=== PATIENT | female | born 1975 | race Caucasian/White ===

== ENCOUNTER 2022-07-21 11:59 | Inpatient (IN) | payer SELFPAY ==
[2022-07-21] VITALS (8 sets, daily range): BP systolic 119–154; BP diastolic 68–95; PULSE 81–99; RESP 20–27; TEMP 34.9–36.1; O2SAT 94–100; BMI 40.8
--- NOTE | ~2022-07-21 | CT_ITS ---
EXAMINATION: CTA chest PE protocol DATE: 07/21/2022 14:19 INDICATION: Chest pain. TECHNIQUE: Computed tomography angiography (CTA) of the chest was performed with 100 mL Omnipaque-350 intravenous contrast timed to evaluate the pulmonary arteries. Coronal maximum intensity projection 3D-reconstructions were created by the technologist. Automated exposure control and iterative reconst ruction technique were employed. The dose-length product was 427.69 mGy-cm. COMPARISON: Chest single view 07/21/2022 FINDINGS: There is a 10 mm nodule in right lung lower lobe near the hilum. There is a 3 mm nodule in left upper lobe. There is smooth septal thickening in the lungs, consistent with mild pulmonary edema . There is mild atelectasis bilaterally. No pleural effusion. The heart size is normal. No pericardia l effusion. There is no pulmonary embolus. A right hilar node measures 2.8 x 2.2 cm. There is a mildl y enlarged right paratracheal node. There is subcarinal lymphadenopathy with central calcifications. There is mild thoracic spondylosis. IMPRESSION: 1. No pulmonary embolus. 2. 10 mm pulmonary nodule, which may be infection or malignancy. Noncontrast chest CT is recommended in 3 months. 3. Right hilar and mediastinal lymphadenopathy. 4. Mild pulmonary edema. Reviewed, dictated and finalized at location A. IMPRESSION: 1. No pulmonary embolus. 2. 10 mm pulmonary nodule, which may be infection or malignancy. Noncontrast ch est CT is recommended in 3 months. 3. Right hilar and mediastinal lymphadenopathy. 4. Mild pulmonary edema.
--- NOTE | ~2022-07-21 | XR_ITS ---
EXAMINATION: XR chest 1V portable INDICATION: Chest pain and shortness of breath TECHNIQUE: Portable AP chest at 1311 hours COMPARISON: None available FINDINGS: There are patchy interstitial and airspace opacities throughout the lungs. No pleural effus ion or pneumothorax. The cardiomediastinal silhouette is normal. IMPRESSION: 1. Diffuse lung disease, consistent with pneumonia versus pulmonary edema. Reviewed, dictated and finalized at location B.
--- NOTE | 2022-07-21 12:04 | ECG_ITS ---
Measurements Intervals [place] Rate: 88 P: 22 AL: 127 QRS: 38 QRSD: 90 T: 13 QT: 374 QTc: 454 Interpretive Statements SINUS RHYTHM ST-T WAVE ABNORMALITY IN ANTERIOR LEADS- CONSIDER ISCHEMIA BASELINE ARTIFACT- I, III, AVL ABNORMAL ECG NO PREVIOUS ECG AVAILABLE FOR COMPARISON Electronically Signed On 07-21-2022 21:21:10 CDT by Alan Prater D.O.
--- NOTE | 2022-07-21 12:20 | PC.NURSE ---
Patient placed in in waiting room to await available bed. This RN at intake desk when another patient came to the desk and said I think she needs some help . When this RN entered the waiting room the patient was found lying in the prone position on the floor with legs underneath WC. The patient was awake and oriented. The patient was questioned as to how she ended up on the floor. She was asked if she fell or if she passed out. She stated I laid down here . The patient was questioned again if she fell or if she laid down on the floor. At this time KRIS Rowe also present and again the patient communicated to both this RN and KRIS Rowe that she laid down on the floor intentionally. spd manager made aware.
--- NOTE | 2022-07-21 12:32 | PC.NURSE ---
Patient's , Pancho, requests update when available. Pancho [phone]
[2022-07-21 12:37] LABS: Basophils Percent Auto 0.4 % (0.2-1.2); Eosinophils Absolute Auto 0.1 K/mm3 (0-0.3); Eosinophils Percent Auto 0.7 % (0-4.4); Hematocrit 45.4 % (37.0-47.0); Hemoglobin 14.8 g/dL (12.0-15.0); Immature Granulocyte Absolute 0.03 K/mm3 (0.00-0.031); Immature Granulocyte Percent A 0.4 % (0-0.5); Lymphocytes Absolute Auto 0.14 K/mm3 (0.9-3.2); Lymphocytes Percent Auto 1.8 % (18.3-44.2); Mean Corpuscular HGB Conc 32.6 g/dl (32-36); Mean Corpuscular Hemoglobin 29.1 pg (26-34); Mean Corpuscular Volume 89.2 fl (80-100); Monocytes Absolute Auto 0.5 K/mm3 (0.1-0.6); Monocytes Percent Auto 6.9 % (2.6-8.5); Neutrophils Absolute Auto 6.8 K/mm3 (1.3-6.7); Neutrophils Percent Auto 89.8 % (45.5-73.1); Platelet Count Result 179 k/mm3 (150-375); Red Blood Count 5.09 M/mm3 (4.2-5.4); Red Cell Distribution Width 13.7 % (11.5-14.5); White Blood Count 7.6 K/mm3 (4.5-10.0)
[2022-07-21 12:42] LABS: INR 1.1; Prothrombin Time 13.8 Seconds (11.1-14.7)
[2022-07-21 12:43] LABS: Partial Thromboplastin Time 28.4 SECONDS (22.3-36.8)
[2022-07-21 12:46] LABS: Alanine Aminotransferase 35 U/L (6-35); Albumin Level 4.2 g/dL (3.5-5.1); Alkaline Phosphatase 106 U/L (38-126); Anion Gap 10 mmol/L (8-16); Aspartate Amino Transferase 40 U/L (14-36); Bilirubin,Total 0.4 mg/dL (0.2-1.3); Blood Urea Nitrogen 14 mg/dL (7-17); Calcium 9.1 mg/dL (8.4-10.2); Carbon Dioxide 22 mmol/L (22-30); Chloride 99 mmol/L (98-107); Estimated CRCL calculation 75 ml/min; Estimated Glomerular Filt Rate 60; Glucose 106 mg/dL (65-110); Lipase 42 U/L (23-300); Potassium 4.1 mmol/L (3.4-5.0); Sodium 131 mmol/L (137-145)
[2022-07-21] MEDS: SODIUM CHLORIDE 0.9% IV 1,000 ML 999 ML IV CONT (12:55)
[2022-07-21] MEDS: ONDANSETRON INJ 4 MG/2 ML VIAL IV PUSH (12:56)
[2022-07-21 12:58] LABS: Troponin I < 0.012 ng/mL (0.000-0.034)
[2022-07-21 13:21] LABS: NT Pro B Type Natriuretic Pept 3220 pg/mL (5-100)
--- NOTE | 2022-07-21 13:21 | ED.GENADULT ---
HPI - General Adult General Chief complaint: Shortness of Breath/Dyspnea Stated complaint: shortness of breath - exposure to covid Time Seen by Provider: 07/21/22 12:27 Source: patient and RN notes reviewed Mode of arrival: wheelchair History of Present Illness HPI narrative: This is a 46 year old female smoker who presents for evaluation of difficulty breathing. Patient states her tested positive for COVID on Sunday, and she developed symptoms yesterday. She reports headache, nausea, chest pain, body aches, back pain and shortness of breath. She reports weakness as well. She denies vaccination of covid. She reports her chest feels tight Related Data Allergies Allergy/AdvReac Type Severity Reaction Status Date / Time No Known Allergies Allergy Verified 07/21/22 12:42 Review of Systems Review of Systems: All systems reviewed & are unremarkable except as noted in HPI and below Constitutional: Constitutional: Denies chills, Reports fatigue and Denies fever(s) ENT: Reports nasal congestion Cardiovascular: Cardiovascular: Reports chest pain Respiratory: Respiratory: Reports chest congestion, Reports cough and Reports dyspnea Gastrointestinal: Gastrointestinal: Denies abdominal pain, Reports nausea and Denies vomiting Musculoskeletal: Musculoskeletal: Reports myalgias Neurologic: Denies syncope and Reports headache(s) [facility] Past Medical History Medical History (Updated 07/21/22 @ 16:10 by Jacqueline Dyer MD) Patient denies medical problems Surgical History Surgical History (Updated 07/21/22 @ 16:40 by Natalie Morales NP) H/O tubal ligation History of appendectomy Family History Family History (Updated 07/21/22 @ 16:42 by Natalie Morales NP) Unknown Adopted Social History Social History (Updated 07/21/22 @ 16:41 by Natalie Morales NP) Social History: 2 children unemplyed Smoking packs per day: 0.5 Smoking cigarettes per day: 10.0 Smoking status: Current every day smoker Exam Const: General: ill appearing; No diaphoretic Orientation/consciousness: patient oriented x3 HENMT: Head: normal to inspection Ears: external ears normal and TM's normal bilaterally Face and sinus: normal facial exam Mouth: Yes Normal oral and palatal mucosa present Throat: posterior oropharynx normal Eyes: Conjunctivae: conjunctivae normal Pupils: Equal, round and reactive pupils present EOM: EOMs intact bilaterally Neck: Neck: normal visual inspection Resp: Effort & Inspection: normal respiratory effort Auscultation: clear to auscultation bilaterally Cardio: Rate: regular rate Rhythm: regular rhythm Heart sounds: no murmurs GI: GI Palp: Yes Soft to palpation, No Tenderness to palpation present (GI) and No Guarding due to palpation present (GI) Auscultation: normal bowel sounds Skin: General skin exam: normal color Rashes: no rashes Wounds: no wounds Neuro: General: patient oriented x3, moves all extremities and CN's II-XI intact bilaterally Extrem: General: normal to inspection Psych: Mental Status: mental status grossly normal Course Reevaluation(s) Reevaluation #1: Patient presented with sob appears to be due to covid. pneumonia vs pulmonary edema . I went in room to tell her she was being admitted and oxygen saturation 87% on room air. PAtient placed on 2 L NC. Will started remdesivir and dexamethasone. Natalie accepts patient to hospitalist service. Date: 07/21/22 Time: 16:06 Vital Signs Vital signs: Vital Signs Temperature 96.9 F L 07/21/22 12:00 Pulse Rate 95 07/21/22 12:00 Respiratory Rate 20 07/21/22 12:00 Blood Pressure 154/95 H 07/21/22 12:00 Pulse Oximetry 100 07/21/22 12:00 Temperature 96.9 F L 07/21/22 12:00 Pulse Rate 81 07/21/22 17:18 Respiratory Rate 27 H 07/21/22 17:18 Blood Pressure 125/78 07/21/22 17:18 Pulse Oximetry 99 07/21/22 17:18 Oxygen Delivery Nasal Cannula 07/21/22 17:18 Oxygen
[2022-07-21] MEDS: ALBUTEROL SULFATE (*SP) AEROSOL 1 PUFF 4 PUFF INHALATION (13:22)
[2022-07-21 13:28] LABS: Base Excess ABG -4.5 mEq/l (+/-2.0); Carboxyhemoglobin 0.7 % THb (0-2.0); Fractional Inspired Oxygen 21 %; Methemoglobin ABG 0.3 %THb (0-1.5); Oxygen Saturation ABG 91.5 % (95.0-100.0); Oxyhemoglobin 89.2 % THb (90.0-100.0); PCO2 ABG 30.8 mmHg (35.0-45.0); PO2 ABG 59.8 mmHg (80.0-100.0); PO2 FiO2 Ratio Arterial Blood 2.85 %; Reduced Hemoglobin 9.8 %THb (0-5.0); Total Hemoglobin 14.4 g/dL (12.0-18.0); pH ABG 7.407 (7.350-7.450)
[2022-07-21 13:29] LABS: Device ROOM AIR; Site Drawn RIGHT BRACHIAL
[2022-07-21 13:39] LABS: SARS-CoV-2 RNA PCR Positive
[2022-07-21 15:41] LABS: Troponin I 0.012 ng/mL (0.000-0.034)
--- NOTE | 2022-07-21 16:40 | PM.IMHP ---
H&P: HPI History of Present Illness Date/Time: 07/21/22 16:40 Chief Complaint: Shortness of breath/dyspnea Narrative: This is a 46-year-old female patient who has a history of tobacco abuse. The patient has not been vaccinated for COVID. She came in today to be evaluated for difficulty breathing. Her tested positive for COVID on Sunday and she developed symptoms yesterday. The patient has a severe headache, nausea, vomiting, chest tightness, body aches, and generalized weakness. She is also short of breath with exertion. Her D-dimer was noted to be 1.4. Sodium 131. BNP 3220 and she is positive for COVID. Chest x-ray was read as diffuse lung disease, consistent with pneumonia versus pulmonary edema. Chest CTA was read as the following. No pulmonary embolus. 2. 10 mm pulmonary nodule, which may be infection or malignancy. Noncontrast chest CT is recommended in 3 months. 3. Right hilar and mediastinal lymphadenopathy. 4. Mild pulmonary edema. I explained to the patient that she would need to follow-up with the primary care doctor to have a CT repeated in 3 months for her 10 mm pulmonary nodule. The patient tells me that she does not have a primary care doctor because she is not on any chronic medicine. I explained that she will need to get a list of primary care doctors that her taking new patients prior to being discharged. The patient's O2 level dropped down to 94% she was placed on oxygen at 2 L per nasal cannula. Patient stated she is too weak to walk. She also stated that she feels too dizzy to walk. Patient was given Zofran IV fluids, albuterol, Tylenol, Decadron, and remdesivir. The patient is being admitted to observation status on the date of service of 07/21/2022. Review of Systems Review of Systems: See HPI All systems reviewed & are unremarkable except as noted in HPI and below Constitutional: Constitutional: Reports as per HPI and Reports no additional constitutional complaints Eyes: Eyes: Reports as per HPI and Reports no additional eye complaints ENT: Reports system reviewed and no additional complaints, except as documented and Reports Normal hearing present Cardiovascular: Cardiovascular: Reports no additional cardiovascular complaints Respiratory: Respiratory: Reports no additional respiratory complaints and Reports no additional respiratory complaints Gastrointestinal: Gastrointestinal: Reports as per HPI and Reports no additional gastrointestinal complaints Musculoskeletal: Musculoskeletal: Reports no additional musculoskeletal complaints Integumentary/Breasts: Skin/Breast: Reports system reviewed and no additional complaints, except as docu and Reports as per HPI Neurologic: Reports system reviewed and no additional complaints, except as documented, Reports as per HPI and Reports Normal hearing present Psychiatric: Psychiatric: Reports no additional psychiatric complaints and Reports as per HPI Endocrine: Endocrine: Reports no additional endocrine complaints Hematologic/Lymphatic: Hematologic/Lymphatic: Reports no additional hematologic/lymphatic complaints Allergic/Immunologic: Allergic/Immunologic: Reports no additional allergic/immunologic complaints PMF Past Medical History Medical History (Updated 07/21/22 @ 18:49 by Natalie Morales NP) Patient denies medical problems Tobacco abuse Surgical History Surgical History H/O tubal ligation History of appendectomy Family History Family History Unknown Adopted Social History Social History (Updated 07/21/22 @ 18:44 by Natalie Morales NP) Social History: The patient is and has 2 children. She is currently Unemplyed. The patient continues to smoke daily at least a half pack a cigarettes a day. She denies any alcohol marijuana or illicit drugs. Her is a durable power claims attorney for healthcare. Saad
[2022-07-21] MEDS: REMDESIVIR 200 MG/NS 250 ML 200 MG/250 ML BAG 250 MG IVPB (17:15)
--- NOTE | 2022-07-21 17:59 | ADMGEN ---
This patient, Selin Denny, was admitted to 3 [facility] Room 320-01 at 1735. Patient/family oriented to hospital policies and general routines including ID bracelet, bed and alarms, visiting hours, pain management, procedures, bathroom and other care routines, personal items, smoking policy, room service/diet, and visiting hours. Information on how to activate the Rapid Response Team has been discussed. Patient/Family are encouraged to report perceived risks to care and to ask questions if they do not understand what they are told or what they should do.
[2022-07-21 19:20] LABS: Alanine Aminotransferase 30 U/L (6-35); Estimated CRCL calculation 83 ml/min; Estimated Glomerular Filt Rate > 60
[2022-07-21 19:26] LABS: INR 1.2; Prothrombin Time 14.5 Seconds (11.1-14.7)
[2022-07-22] VITALS (7 sets, daily range): BP systolic 123–153; BP diastolic 77–94; PULSE 72–92; RESP 12–20; TEMP 36.4–36.6; O2SAT 94–96
--- NOTE | 2022-07-22 | ECHO_ITS ---
Patient Info Name: Selin Denny Age: 46 years : 1975 Gender: Female Ht: 64 in Wt: 238 lbs BSA: 2.26 m2 HR: 83 bpm BP: 119 / 89 mmHg Technical Quality: Fair Exam Date: 07/22/2022 11:42 AM Exam Location: [facility] Patient Status: Inpatient Admit Date: 07/21/2022 Staff Ordering Physician: Natalie Morales NP Green Marketer: Indu Rivero RDCS Attending Provider: Compa Sahu MD Referring Physician: Andrew ORELLANA; Exam Type: CA echo doppler color flow Study Info Indications J90 - Pleural effusion, not elsewhere classified Complete two-dimensional, color flow and Doppler transthoracic echocardiogram is performed with contrast to opacify the left ventricle and to improve the deliniation of the left ventricle endocardial borders. Contrast/Agitated Saline Contrast/Ag. Saline: Definity Amount: 3.00 ml Summary 1. Left ventricular chamber dimension is normal. 2. Definity contrast administered improved wall motion interpretation. 3. Left ventricular systolic function is normal, estimated at 65-70%. 4. There is mildly increased left ventricular wall thickness. 5. The left ventricular diastolic function is grade I diastolic dysfunction. 6. E/e' 6 is not elevated. 7. Right ventricular systolic function is severely reduced. 8. Right ventricular chamber dimension is severely enlarged. 9. D shaped ventricular septum during systole and diastole suggesting pressure and volume overload of right ventricle. 10. There is mild tricuspid valve regurgitation. 11. Mild pulmonary hypertension, estimated pulmonary arterial systolic pressure is 42 mmHg. 12. There is trace pulmonic regurgitation. Left Ventricle E/e' 6 is not elevated. Definity contrast administered improved wall motion interpretation. Left ventricular chamber dimension is normal. Left ventricular systolic function is normal, estimated at 65-70%. There is mildly increased left ventricular wall thickness. The left ventricular diastolic function is grade I diastolic dysfunction. Right Ventricle D shaped ventricular septum during systole and diastole suggesting pressure and volume overload of right ventricle. Right ventricular systolic function is severely reduced. Right ventricular chamber dimension is severely enlarged. Left Atria Left atrial chamber dimension is normal. Right Atria Right atrial chamber dimension is normal. Aortic Valve The aortic valve is trileaflet. There is no aortic valve stenosis. There is no aortic valve regurgitation. Pulmonic Valve There is trace pulmonic regurgitation. Mitral Valve There is no mitral valve stenosis. There is no mitral valve regurgitation. Tricuspid Valve There is mild tricuspid valve regurgitation. Mild pulmonary hypertension, estimated pulmonary arterial systolic pressure is 42 mmHg. Pericardium/Pleural There is no pericardial effusion. Inferior Vena Cava Normal inferior vena cava with >50% collapse upon inspiration consistent with normal right atrial pressure, 5 mmHg. Aorta The aortic root size at the sinus of Valsalva is normal. Left Ventricular Outflow Tract Name Value Normal LVOT 2D LVOT Diameter 2.
[2022-07-22 06:41] LABS: Basophils Percent Auto 0.3 % (0.2-1.2); Hematocrit 45.5 % (37.0-47.0); Hemoglobin 14.7 g/dL (12.0-15.0); Immature Granulocyte Absolute 0.01 K/mm3 (0.00-0.031); Immature Granulocyte Percent A 0.3 % (0-0.5); Lymphocytes Absolute Auto 0.27 K/mm3 (0.9-3.2); Lymphocytes Percent Auto 8.5 % (18.3-44.2); Mean Corpuscular HGB Conc 32.3 g/dl (32-36); Mean Corpuscular Hemoglobin 29.2 pg (26-34); Mean Corpuscular Volume 90.3 fl (80-100); Mean Platelet Volume 11.1 fl (7.4-10.4); Monocytes Absolute Auto 0.2 K/mm3 (0.1-0.6); Neutrophils Absolute Auto 2.7 K/mm3 (1.3-6.7); Neutrophils Percent Auto 83.9 % (45.5-73.1); Platelet Count Result 144 k/mm3 (150-375); Red Blood Count 5.04 M/mm3 (4.2-5.4); Red Cell Distribution Width 13.6 % (11.5-14.5); White Blood Count 3.2 K/mm3 (4.5-10.0)
[2022-07-22 06:59] LABS: Alanine Aminotransferase 37 U/L (6-35); Albumin Level 4.1 g/dL (3.5-5.1); Alkaline Phosphatase 103 U/L (38-126); Anion Gap 12 mmol/L (8-16); Aspartate Amino Transferase 41 U/L (14-36); Bilirubin,Total 0.3 mg/dL (0.2-1.3); Blood Urea Nitrogen 13 mg/dL (7-17); Calcium 8.9 mg/dL (8.4-10.2); Carbon Dioxide 22 mmol/L (22-30); Chloride 100 mmol/L (98-107); Estimated CRCL calculation 75 ml/min; Estimated Glomerular Filt Rate 60; Glucose 109 mg/dL (65-110); Lactic Acid Reflex 1.4 mmol/L (0.7-2.0); Magnesium 1.8 mg/dL (1.6-2.3); Potassium 4.4 mmol/L (3.4-5.0); Sodium 134 mmol/L (137-145)
[2022-07-22 07:49] LABS: INR 1.2; Prothrombin Time 14.7 Seconds (11.1-14.7)
[2022-07-22] MEDS: ENOXAPARIN 40 MG/0.4 ML SYRINGE SUB-Q (10:13)
[2022-07-22] MEDS: FUROSEMIDE INJ 40 MG/4 ML VIAL IV PUSH ×2 (10:15→16:46)
--- NOTE | 2022-07-22 10:45 | PM.IMPN ---
Progress Note: A&P Assessment and Plan (1) COVID: Code(s): U07.1 - COVID-19 Status: Acute Assessment and Plan: -COVID positive on 07/21/22 -Currently on oxygen at 2 L per nasal cannula. -Chest xray shows diffuse lung disease consistent with PNA vs Pulm edema -Chest CTA No PE, 10mm Pulm nodule, mild pulmonary edema -ECHO ordered -Does not appear to be vaccinated -Continue remdesivir day 2 -continue with Decadron -continue with albuterol inhaler -Isolation -D-Dimer 1.40, Ferritin 33.40, continue to trend, LDH in the am -ABG stable: pH 7.407, CO2 30.8, O2 59.8, HCO3 19, O2 saturation 91.5 on room air -BNP elevated at 3220 -Lasix 40mg IV once to see how she responds -trend labs -Supplemental oxygen as indicated (2) Hypoxia: Code(s): R09.02 - Hypoxemia Status: Acute Assessment and Plan: -patient was positive for COVID -continue with oxygen as necessary -Wonder if this is in part some new COPD -There are some bullae on the CT of this chest -Could also be some part of Bacterial PNA (3) Tobacco abuse: Code(s): Z72.0 - Tobacco use Status: Acute Assessment and Plan: -Smoking cessation Education for approximately 5 minutes. -Nicotine patch and gum PRN (4) Pulmonary nodule: Code(s): R91.1 - Solitary pulmonary nodule Status: Acute Assessment and Plan: 10mm Nodule noted on the CTA Follow up CT in 3 months Will instruct her to follow up outpatient (5) CHF (congestive heart failure): Code(s): I50.9 - Heart failure, unspecified Status: Acute Assessment and Plan: There seems to be a fluid overload role playing a part BNP is 3220 Echo is ordered Just guessing that this is probably a diastolic heart failure probably in an acute exacerbation Lasix 40mg IV once Daily weights Trend urine output Trend respiratory status (6) Pneumonia: Code(s): J18.9 - Pneumonia, unspecified organism Status: Acute Assessment and Plan: Amelia and CTA indicate possible PNA Start azithromycin and ceftriaxone WBC low at 3.2, however came in at 7.6 Sputum culture ordered (7) Transaminitis: Code(s): R74.01 - Elevation of levels of liver transaminase levels Status: Acute Assessment and Plan: AST/ALT mildly elevated at 41/37 Hep panel in the am Trend labs Time Spent With Patient Time with patient: Greater than 35 minutes Subjective Date/time seen: 07/22/221044 Interval history: 07/22/221044 Patient is very anxious today. She is really not ever in the hospital, however, she is still very short of breath, and has a hard time getting to and from the bathroom. She denies any chest pain. She did state that she is doing better with nausea, however, she denies eating a whole lot due to the nausea. She denies any vomiting. Talked to her about the need to stay here, and the workup that is being performed. BNP noted to be elevated. She also stated that he r right leg does swell and that it swells more than the left. 07/21/22? 16:40 This is a 46-year-old female patient who has a history of tobacco abuse.? The patient has not been vaccinated for COVID.? She came in today to be evaluated for difficulty breathing.? Her tested positive for COVID on Sunday and she developed symptoms? yesterday.? The patient has a severe headache, nausea, vomiting, chest tightness, body aches, and generalized weakness.? She is also short of breath with exertion.? Her D-dimer was noted to be 1.4.? Sodium 131.? BNP 3220 and she is positive for COVID.? Chest x-ray was read as diffuse lung disease, consistent with pneumonia versus pulmonary edema.? Chest CTA was read as the following. No pulmonary embolus. 2. 10 mm pulmonary nodule, which may be infection or malignancy. Noncontrast chest CT is recommended in 3 months. 3. Right hilar and mediasti
[2022-07-22] MEDS: PERFLUTREN LIPID MICROSPHERES 1.5 ML VIAL DILUTED TO 10 ML TOTAL VOLUME IV PUSH (11:30)
[2022-07-22] MEDS: REMDESIVIR 100 MG/NS 250 ML 100 MG/250 ML BAG 250 MG IVPB (13:25)
--- NOTE | 2022-07-22 21:15 | PC.NURSE ---
At approximately 2014, I was in room 321 giving her pain medication, and her nighttime meds, when Sintia Zuniga CNA informed me that Selin Denny in room 320 had come out of her room with her bag in her hand, and proceeded down the stairwell near room 319. I took off up the ramos to the elevator calling Security on my way to inform them. I called HERNANDEZ Tan to let her know I had left the floor, and I proceeded to the front entrance. I looked all around the entrance to the hospital as well as outpatient. I didn't see any sign of the patient anywhere. She did have her IV in her arm when she left AMA.
--- NOTE | 2022-07-22 21:40 | PM.EVENT ---
Event Note Event Note Event Note: 07/22/2022 at 21:40 Nursing staff called to notify me that the patient has ups conduit from the hospital. The nursing staff cells the patient leaving down the backs tear well. The nurse tried to frandy the patient down but the patient was able to get away from nursing staff. The patient still had an IV intact. A search was conducted of the hospital and the patient was not located. Both the patient's phone and her significant other's phone were contacted but they are not answering the phones. The police department has been contacted to hopefully track down the patient for IV removal.
--- NOTE | 2022-07-23 13:42 | PM.DS ---
DS: Admitting Diagnosis Discharge Date 07/22/22 Admitting Diagnosis COVID-19, PNA, Acute exacerbation of diastolic heart failure DS: Discharge Diagnosis Discharge Diagnosis (1) COVID: Code(s): U07.1 - COVID-19 Status: Acute Assessment and Plan: -COVID positive on 07/21/22 -Currently on oxygen at 2 L per nasal cannula. -Chest xray shows diffuse lung disease consistent with PNA vs Pulm edema -Chest CTA No PE, 10mm Pulm nodule, mild pulmonary edema -ECHO ordered -Does not appear to be vaccinated -Continue remdesivir day 2 -continue with Decadron -continue with albuterol inhaler -Isolation -D-Dimer 1.40, Ferritin 33.40, continue to trend, LDH in the am -ABG stable: pH 7.407, CO2 30.8, O2 59.8, HCO3 19, O2 saturation 91.5 on room air -BNP elevated at 3220 -Lasix 40mg IV once to see how she responds -trend labs -Supplemental oxygen as indicated (2) Hypoxia: Code(s): R09.02 - Hypoxemia Status: Acute Assessment and Plan: -patient was positive for COVID -continue with oxygen as necessary -Wonder if this is in part some new COPD -There are some bullae on the CT of this chest -Could also be some part of Bacterial PNA (3) Tobacco abuse: Code(s): Z72.0 - Tobacco use Status: Acute Assessment and Plan: -Smoking cessation Education for approximately 5 minutes. -Nicotine patch and gum PRN (4) Pulmonary nodule: Code(s): R91.1 - Solitary pulmonary nodule Status: Acute Assessment and Plan: 10mm Nodule noted on the CTA Follow up CT in 3 months Will instruct her to follow up outpatient (5) CHF (congestive heart failure): Code(s): I50.9 - Heart failure, unspecified Status: Acute Assessment and Plan: There seems to be a fluid overload role playing a part BNP is 3220 Echo is ordered Just guessing that this is probably a diastolic heart failure probably in an acute exacerbation Lasix 40mg IV once Daily weights Trend urine output Trend respiratory status (6) Pneumonia: Code(s): J18.9 - Pneumonia, unspecified organism Status: Acute Assessment and Plan: Amelia and CTA indicate possible PNA Start azithromycin and ceftriaxone WBC low at 3.2, however came in at 7.6 Sputum culture ordered (7) Transaminitis: Code(s): R74.01 - Elevation of levels of liver transaminase levels Status: Acute Assessment and Plan: AST/ALT mildly elevated at 41/37 Hep panel in the am Trend labs DS: Summary Hospital Course Hospital Course: Patient is a 46-year-old female with a past medical history of tobacco abuse who presented to the ED with complaints of difficulty breathing. Patient had tested positive for COVID. Chest x-ray indicated a possible pneumonia. CTA showed no pulmonary embolism however did see a 10 mm pulmonary nodule with mild pulmonary edema. Patient had a echo done which did show an EF of 65-70% with grade 1 diastolic dysfunction. Patient was given a dose of IV Lasix and oxygen was able to be weaned off. Patient was also started on remdesivir and dexamethasone for COVID. ABG was drawn and did show respiratory alkalosis. Multiple conversations with the patient about her current can medical condition was given. Explained the patient that her anxiety can be controlled with medication at this time. I also explained to her that she needs to allow treatment to happen as she is on oxygen does not wear oxygen at home. Patient verbalized understanding at that time. It appears the patient left AMA and ways of elopement. No discharge teaching or planning was finalized due to the patient leaving against medical advise. Time spent discussing smoking cessation with patient: more than 10 minutes Status at Discharge Functional status at discharge: independent ambulation Time Spent with Patient Time attestation: Total time
== END 2022-07-22 21:42 | disposition left against medical advice (07) | DRG 137 ==
LOC: ANHED 16:10 → ANH3MEDSUR 17:32
PROVIDERS: Emergency Medicine; Nurse Practitioner; Admitting Provider Internal Medicine; Emergency Provider General Practice; Visit Provider Nurse Practitioner
DX: U07.1 COVID-19 (principal); I50.31 Acute diastolic (congestive) heart failure; E87.3 Alkalosis; J18.9 Pneumonia, unspecified organism; F17.210 Nicotine dependence, cigarettes, uncomplicated; R09.02 Hypoxemia; R91.1 Solitary pulmonary nodule; R74.01 Elevation of levels of liver transaminase levels; Z28.310 Unvaccinated for COVID-19; Z90.49 Acquired absence of other specified parts of digestive tract
CPT/HCPCS: 36415; 36600; 71045; 71275; 80053; 82375; 82565; 82728; 82805; 83050; 83605; 83690; 83735; 83880; 84460; 84484; 85025; 85380; 85610; 85730; 93005; 96361; 96365; 96366; 96367; 96368; 96372; 96375; 99285; A9270; C8929; C9803; G0378; J0131; J0248; J0456; J0696; J1100; J1650; J1940; J2405; J7030; Q9957; Q9967; U0003; U0005

== ENCOUNTER 2024-03-10 20:49 | Emergency (ER) | payer OTHER, SELFPAY ==
[2024-03-10] VITALS (8 sets, daily range): BP systolic 122–136; BP diastolic 81–107; PULSE 81–88; RESP 14–24; TEMP 36.6–36.9; O2SAT 92–97
--- NOTE | ~2024-03-10 | XR_ITS ---
EXAMINATION: XR chest 1V portable Exam Date/Time: 03/10/2024 21:09 CDT HISTORY: COUGH Comparison: None. RESULT: Lines, tubes, and devices: None. Lungs and pleura: Clear. Cardiomediastinal silhouette: Stable. Other: No acute osseous or upper abdominal finding. IMPRESSION: No acute cardiopulmonary process. Reviewed, dictated and finalized at location K.
--- NOTE | 2024-03-10 20:57 | ED.URI ---
HPI - URI/Sore Throat General Chief Complaint: Upper Respiratory Infection Stated Complaint: coughing up blood Source: patient and family Mode of arrival: ambulatory Limitations: no limitations History of Present Illness HPI Narrative: 48 YEARS OLD WHITE FEMALE CAME TO THE ED WITH COUGHING FOR WEEKS, START HAVING COUGH AND A BLOOD TODAY. FRESH RED BRIGHT BLOOD. HISTORY OF HYPERTENSION, CONGESTIVE HEART FAILURE, TOBACCO DEPENDENT NOT ON ANTI-PLATELET OR ANTICOAGULANT MEDICATION. Related Data Home Medications Medication Instructions Recorded Confirmed furosemide 40 mg tablet (Lasix) 40 mg PO BID 03/10/24 03/10/24 losartan 50 mg tablet (Cozaar) 25 mg PO DAILY 03/10/24 03/10/24 Allergies Allergy/AdvReac Type Severity Reaction Status Date / Time ketorolac Allergy Swelling Verified 03/10/24 21:14 [facility] Past Medical History Medical History (Updated 03/10/24 @ 22:01 by Aurora Mc MD) Combined systolic and diastolic cardiac dysfunction Patient denies medical problems Pulmonary hypertension Tobacco abuse Surgical History Surgical History H/O tubal ligation History of appendectomy Family History Family History Unknown Adopted Social History Social History (Updated 07/21/22 @ 18:44 by Natalie Morales NP) Social History: The patient is and has 2 children. She is currently Unemplyed. The patient continues to smoke daily at least a half pack a cigarettes a day. She denies any alcohol marijuana or illicit drugs. Her is a durable power patent prosecution attorney for healthcare. Code status full code Smoking packs per day: 0.5 Smoking cigarettes per day: 10.0 Years smoked: 36 Smoking pack-years: 18.00 Smoking status: Current every day smoker Tobacco type: cigarettes Second hand tobacco smoke exposure: Yes Alcohol intake: never Substance use: never Substance use type: does not use Spiritual care concerns: No Course Vital Signs Vital signs: Vital Signs Temperature 36.6 C 03/10/24 21:07 Pulse Rate 82 03/10/24 21:07 Respiratory Rate 17 03/10/24 21:07 Blood Pressure 124/87 03/10/24 21:07 Pulse Oximetry 97 03/10/24 21:07 Oxygen Delivery Room Air 03/10/24 21:07 Temperature 36.6 C 03/10/24 21:07 Pulse Rate 82 03/10/24 21:07 Respiratory Rate 17 03/10/24 21:07 Blood Pressure 124/87 03/10/24 21:07 Pulse Oximetry 97 03/10/24 21:07 Oxygen Delivery Room Air 03/10/24 21:07 MDM - URI/Sore Throat MDM Narrative Medical decision making narrative: PATIENT PRESENTS WITH COUGHING WITH HEMOPTYSIS DIFFERENTIAL DIAGNOSIS: COUGHING INDUCED HEMOPTYSIS, BRONCHITIS, PNEUMONIA, CONGESTIVE HEART FAILURE, PULMONARY EMBOLISM, LUNG MASS. BLOOD WORKUP TODAY SHOWED: ELEVATED WBC 13.5, ELEVATED D-DIMER 0.65, LOW POTASSIUM OF 2.8, PATIENT IS TELLING ME THAT SHE DOES NOT TAKE HER POTASSIUM AT HOME. 40 MEQ P.O. WAS GIVEN IN THE ED., CREATININE OF 1.75 WHICH IS ELEVATED COMPARED TO THE PREVIOUS RECORDS, COULD BE SECONDARY TO LASIX INTAKE AND POOR P.O. FLUID INTAKE. PATIENT IS TELLING ME THAT SHE DOES NOT DRINK ENOUGH. LACTIC ACID OF 2.1 BNP IS 3256, CHEST X-RAY SHOWED NO SIGNS FOR PULMONARY CONGESTION. PATIENT DECLINED FURTHER EVALUATION TO RULE OUT THE POSSIBILITY OF PE OR TO BE HOSPITALIZED OR TRANSFERRED TO ANOTHER FACILITY FOR FURTHER EVALUATION AND MANAGEMENT. SIGNIFICANT OTHER WAS IN THE ROOM AT THAT TIME, GOT MAD AND LEFT THE ROOM BECAUSE PATIENT DECLINED TO STAY. MY PLAN TO SLIT PATIENT SIGN AMA AND HAVE A PRESCRIPTION OF LEVAQUIN, POTASSIUM AND TESSALON FOR POSSIBLE BRONCHITIS INDUCING HEMOPTYSIS. I DECLARE THAT I HAVE PERSONALLY EXPLAINED TO THE PATIENT THE RISKS AND CONSEQUENCES INVOLVED IN LEAVING THIS FACILITY AT THIS TIME. THE BENEFITS OF CONTINUED TREATMENT AND/OR HOSPITALIZATION. AND THE ALTERNATIVES. IF ANY. TO CONTINUED TREATMENT
--- NOTE | 2024-03-10 21:06 | ECG_ITS ---
SEE SCANNED COPY FOR CONFIRMED REPORT MTDD
[2024-03-10 21:21] LABS: Basophils Absolute Auto 0.05 K/mm3 (0.00-0.10); Basophils Percent Auto 0.4 % (0.0-1.0); Eosinophils Absolute Auto 0.34 K/mm3 (0.02-0.50); Eosinophils Percent Auto 2.5 % (1.0-6.0); Hematocrit 42.5 % (35.0-49.0); Hemoglobin 13.8 g/dL (12.0-15.0); Immature Granulocyte Absolute 0.05 K/mm3 (0.00-0.00); Immature Granulocyte Percent A 0.4 % (0.0-0.0); Lymphocytes Absolute Auto 1.89 K/mm3 (1.10-4.50); Mean Corpuscular HGB Conc 32.5 g/dL (32-36); Mean Corpuscular Hemoglobin 30.7 pg (27.0-31.0); Mean Corpuscular Volume 94.7 fL (78.0-102.0); Mean Platelet Volume 10.3 fl (9.2-11.8); Monocytes Percent Auto 4.4 % (2.0-11.0); Neutrophils Absolute Auto 10.61 K/mm3 (1.70-7.20); Neutrophils Percent Auto 78.3 % (50.0-70.0); Platelet Count Result 227 K/mm3 (150-420); Red Blood Count 4.49 M/mm3 (4.20-5.40); Red Cell Distribution Width 13.8 % (11.6-14.4); White Blood Count 13.5 K/mm3 (4.8-10.8)
[2024-03-10 21:39] LABS: Oxygen Content ABG 18.9 %vol (16.0-22.0); Oxygen Saturation ABG 93.3 % (95-97); Oxyhemoglobin 90.8 % (94-100); Total Hemoglobin 14.8 g/dL (12.0-18.0); pH ABG 7.46 (7.35-7.45)
[2024-03-10 21:40] LABS: PCO2 ABG 36.2 mmHg (35-45); PO2 ABG 58.9 mmHg (80-90)
[2024-03-10 21:41] LABS: Base Excess ABG 1.6 mmol/L (0-2); HCO3 ABG 25.1 mmol/L (23-29)
[2024-03-10 21:42] LABS: Device ROOM AIR; Modified Allen's Test Pass; Site Drawn RIGHT RADIAL
[2024-03-10 21:43] LABS: Partial Thromboplastin Time 27.2 Sec (23.9-30.70); Prothrombin Time 10.9 Seconds (9.50-12.1)
[2024-03-10 21:45] LABS: D Dimer 0.65 mg/L (0.19-0.50)
[2024-03-10 21:50] LABS: Lactic Acid Reflex 2.1 mmol/L (0.4-2.0)
[2024-03-10 21:52] LABS: Alanine Aminotransferase 47 U/L (14-59); Alkaline Phosphatase 175 U/L (46-116); Anion Gap 12 mmol/L (4-12); Aspartate Amino Transferase 35 U/L (15-37); Bilirubin,Total 0.4 mg/dL (0.00-1.00); Blood Urea Nitrogen 18 mg/dL (7-18); Calcium 8.8 mg/dL (8.5-10.1); Carbon Dioxide 28 mmol/L (21-32); Chloride 99 mmol/L (98-108); Estimated CRCL calculation 45 ml/min; Estimated Glomerular Filt Rate 31; Glucose 154 mg/dL (70-99); NT Pro B Type Natriuretic Pept 3256 pg/mL (0-125); Osmolality Calculated 292 mOsm/kg (285-295); Potassium 2.8 mmol/L (3.5-5.1); Sodium 139 mmol/L (136-145); Total Protein 7.5 g/dL (6.4-8.2)
[2024-03-10 21:53] LABS: Troponin I 113.6 ng/L (0.00-60.4)
--- NOTE | 2024-03-10 22:09 | PC.NURSE ---
RN AT PATIENT BEDSIDE FOR UPDATE PATIENT IS PERSISTENTLY REFUSING TO BE TRANSFERRED TO ANOTHER FACILITY, STATING SHE WANTS TO GO HOME AND ADDING SHE IS FEELING BETTER ALREADY. PATIENT SPOUSE AT BEDSIDE. PATIENT IS ANXIOUS AND TEARFUL, ADAMANT ABOUT RETURNING HOME, REFUSING TO BE TRANSFERRED ANYWHERE. ERP MADE AWARE OF PATIENT REFUSAL. RN RETURNED TO PATIENT BEDSIDE WITH DR CALVIN WHO REVIEWED PATIENT RESULTS WITH HER INCLUDING RISKS OF LEAVING FACILITY VS BENEFITS OF TRANSFERRING TO A HIGHER LEVEL OF CARE INCLUDING A FACILITY WITH PULMONOLOGY AND CARDIOLOGY. PATIENT TELLS ED STAFF MAYBE SHE CAME HERE FOR ATTENTION ADDING SHE WILL FOLLOW UP WITH HER PROVIDER ONCE RETURNING HOME. PATIENT ENCOURAGED TO RETURN TO FACILITY NEEDED BY ED STAFF. PATIENT REFUSED ANY FURTHER CARE INCLUDING PLANNED TRANSFER. PATIENT SPOUSE LEFT ED ROOM IN FRUSTRATION. PATIENT PROVIDED WITH DISCHARGE INSTRUCTIONS, WAS AWAKE AND ALERT AT TIME OF DECISION WITH VSS. PATIENT ALSO TELLS ED STAFF SHE HAS FORGOTTEN TO TAKE HER POTASSIUM AT HOME . ENCOURAGED TO TAKE HER K+ PRESCRIBED.
[2024-03-10] MEDS: BENZONATATE 100 MG CAPSULE 200 MG PO (22:28)
[2024-03-10] MEDS: POTASSIUM CHLORIDE 20 MEQ PACKET (FOR LIQUID) 40 MEQ PO (22:29)
[2024-03-10] MEDS: levoFLOXacin TAB 500 MG, levoFLOXacin TAB 250 MG 750 MG PO (22:29)
[2024-03-10 23:07] LABS: Reflex Lactic Acid Yes or No No Lactic Reflex
--- NOTE | 2024-03-17 16:47 | PC.NURSE ---
03/17/24 FINAL BLOOD CULTURE NO GROWTH AFTER 5 DAYS
== END 2024-03-10 22:36 | disposition left against medical advice (07) ==
PROVIDERS: Emergency Provider Emergency Medicine
DX: R04.2 Hemoptysis (principal); R79.89 Other specified abnormal findings of blood chemistry; N17.9 Acute kidney failure, unspecified; E87.6 Hypokalemia; I11.0 Hypertensive heart disease with heart failure; I50.40 Unspecified combined systolic (congestive) and diastolic (congestive) heart failure; I27.20 Pulmonary hypertension, unspecified; F17.210 Nicotine dependence, cigarettes, uncomplicated
CPT/HCPCS: 36415; 36600; 71045; 80053; 82805; 83605; 83880; 84484; 85025; 85380; 85610; 85730; 87040; 93005; 99284; A9270